=== PATIENT | female | born 1940 | race Caucasian/White ===

== ENCOUNTER → 2016-09-21 | Outpatient (CLI) | payer MEDICARE ==
[~2016-09-21] MED LIST: ACETAMINOPHEN PO; AMANTADINE HCL100 MG PO; AQUACEL TP; ASPIRIN1 GM PO; ASPIRIN81 M1 PO; ATIVAN0.5 MG PO; ATIVAN2 MG PO; AVODART0.5 MG PO; BACTRIM DS TABL1 TA1 PO; BAYER CHEWABLE81 MG PO; CARBIDOPA-LEVO1 TA1 PO; CARDIZEM CD120 MG PO; CARDIZEM CD240 M1 PO; CIPRO PO; COLACE50 MG PO; COUMADIN PO; COUMADIN5 MG PO; COUMADIN7.5 MG PO; CRANBERRY+ SOFT1 CAP PO; DAKIN'S473 M1 TOP; DILTIAZEM HCL30 MG PO; HCTZ PO; HYDROCHLOROTH12.5 M1 PO; JUVEN PACKET1 EACH PO; LISINOPRIL20 MG PO; LORAZEPAM1 MG PO; LORTAB 7.5-5001 TAB PO; LOVENOX; MIRALAX17 GM PO; MULTIVITAMIN1 UDCAP PO; NITROFURANTOIN50 M1 PO; PRILOSEC20 MG PO; PRINIVIL20 M1 PO; PROPAFENONE HC150 MG PO; REMERON PO; REMERON30 MG PO; RHYTHMOL PO; RISPERDAL0.5 M2 PO; RISPERDAL1 M1 PO; RISPERIDONE PO; RISPERIDONE0.5 MG PO; RYTHMOL150 MG PO; SANTYL15 G1 TP; SINEMET CR1 TAB 25/1 PO; STALEVO 75 TAB1 EACH PO; STALEVO PO; TEMAZEPAM PO; TEMAZEPAM30 MG PO; VITAMIN C500 M1 PO; ZINC SULFATE220 M1 PO; ZOCOR20 MG PO; ZYVOX600 MG PO; [UNRECOGNIZED DRUG - OTHER] PO
--- NOTE | ~2016-09-21 | MY11 ---
[facility] A Service of [facility] RADIOLOGY TEXT RESULTS PATIENT: BLAISE WOLF LOCATION: [facility] : 44 UNIT #: [id number] AGE: [address]: Terri Hatfield MD SEX: F ORDER DR: [id number] [facility] [address] [place], [place] [address] [id number] O MR#: [id number] Acc #: [id number] NAME: BLAISE WOLF : 1940 SEX: F STUDY DATE/TIME: 09/21/2016 11:16 UNIT: [facility] ROOM: STUDY DESCRIPTION: MY Mammogram Screening Dig Reji Attending Physician: Terri Hatfield M.D. Referring Physician: Terri Hatfield M.D. Ordering Physician: Terri Hatfield M.D. Primary Care Physician: Terri Hatfield M.D. MEDICAL IMAGING REPORT This report is preliminary unless electronic signature is present EXAM Digital screening mammogram, 09/21/2016 HISTORY 76-year-old woman no risk elevation. Annual screening. COMPARISON Mammograms date to 05/24/2006 with most recent comparison 09/20/2015. FINDINGS Digital imaging of each breast was completed utilizing screening protocol. Review includes FDA-approved CAD device. Breast parenchyma is heterogeneous with residual small nodular pattern bilaterally. There is no dominant mass. I see no interval occurring suspicious microcalcifications and no architectural deformity. Occasional benign calcification in each breast. IMPRESSION Benign mammogram. Annual screening recommended. Patients over the age of 40 are entered into a reminder system with target due date for the next mammogram. A result letter will also be sent to the patient. BIRADS: 2 Benign Finding Dictated by... Mk Vanessa M.D. THIS IS AN ELECTRONICALLY VERIFIED REPORT Mk Vanessa M.D. at 09/21/2016 2:26 PM Jose [facility] A Service [facility] RADIOLOGY TEXT RESULTS PATIENT: BLAISE WOLF LOCATION: [facility] : 44 UNIT #: [id number] AGE: [address]: Terri Hatfield MD SEX: F ORDER DR: TD: 09/21/2016 13:10 JOB #: [id number] MEDICAL IMAGING REPORT Page 1 of 1 COPY
== END | disposition home or self-care (01) ==
LOC: CWCC 10:45
DX: Z12.31 Encounter for screening mammogram for malignant neoplasm of breast (principal)
CPT/HCPCS: G0202